=== PATIENT | male | born 1955 | race Asian ===

== ENCOUNTER 2019-04-26 11:39 | Inpatient (IN) | payer BC ==
[~2019-04-26] VITALS: Ht 182.9 cm; Wt 89.0 kg
[~2019-04-26 11:39] MED LIST: COLACE100 MG PO; NOR10T PO; PRINIVIL10 MG PO; [UNRECOGNIZED DRUG - REMARK]
[2019-04-26 12:28] LABS: CARBON DIOXIDE 27.4 mmol/L (21-32); CHLORIDE SERUM 100 mmol/L (98-107); GFR1 > 60 mL/min; GLUCOSE SERUM 213 mg/dL (74-106); POTASSIUM SERUM 3.1 mmol/L (3.5-5.1); SODIUM SERUM 136 mmol/L (136-145)
[2019-04-26 12:30] LABS: BASOPHIL % 0.3 % (0-2); PLATELET COUNT 311 x10^3mcL (130-400); RED CELL DISTRIBUTION WIDTH 14.2 % (11.5-14.5)
[2019-04-26 12:32] LABS: ALKALINE PHOSPHATASE 82 U/L (46-116); ALT/SGPT 66 U/L (16-63); AST/SGOT 53 U/L (15-37); BILIRUBIN TOTAL 0.4 mg/dL (0.20-1.00); LIPASE 597 IU/L (73-393)
[2019-04-26 12:35] LABS: TOTAL PROTEIN, SERUM 5.7 g/dL (6.4-8.2)
[2019-04-26] MEDS ORDERED: DILTIAZEM HCL120 M2 PO (13:17)
[2019-04-26] MEDS ORDERED: AMBIEN5 MG PO (13:17)
[2019-04-26] MEDS ORDERED: LORAZEPAM0.5 MG PO (13:17)
[2019-04-26] MEDS ORDERED: COMINH (13:17)
[2019-04-26] MEDS ORDERED: DULCOLAX10 M1 (13:17)
[2019-04-26] MEDS ORDERED: PERCOCET1 TA5 (13:18)
[2019-04-26] MEDS ORDERED: XARELTO10 M1 PO (13:19)
[2019-04-26] MEDS ORDERED: SENNO8.6 MG PO (13:19)
[2019-04-26] MEDS ORDERED: GAS RELIEF 8080 MG (13:19)
[2019-04-26 14:48] LABS: PLATELET COUNT 280 x10^3mcL (130-400); RED CELL DISTRIBUTION WIDTH 14.3 % (11.5-14.5)
[2019-04-26 14:53] LABS: BASOPHIL % 0 % (0-2)
[2019-04-26 16:46] VITALS: BP 112/73
[2019-04-26 19:37] VITALS: BP 97/66
[2019-04-26 23:09] VITALS: BP 121/83
[2019-04-27 03:09] VITALS: BP 128/89
[2019-04-27 05:18] LABS: BASOPHIL % 0.1 % (0-2); PLATELET COUNT 286 x10^3mcL (130-400); RED CELL DISTRIBUTION WIDTH 14.3 % (11.5-14.5)
[2019-04-27 05:22] LABS: ALBUMIN 1.6 g/dL (3.4-5.0); ALKALINE PHOSPHATASE 69 U/L (46-116); ALT/SGPT 75 U/L (16-63); AST/SGOT 62 U/L (15-37); BILIRUBIN TOTAL 0.3 mg/dL (0.20-1.00); CALCIUM 7.2 mg/dL (8.5-10.1); CARBON DIOXIDE 23.5 mmol/L (21-32); CHLORIDE SERUM 105 mmol/L (98-107); CREATININE SERUM 0.7 mg/dL (0.7-1.3); GFR1 > 60 mL/min; GLUCOSE SERUM 145 mg/dL (74-106); POTASSIUM SERUM 3.3 mmol/L (3.5-5.1); SODIUM SERUM 138 mmol/L (136-145); TOTAL PROTEIN, SERUM 4.7 g/dL (6.4-8.2)
[2019-04-27 08:21] VITALS: BP 141/97
[2019-04-27 11:52] VITALS: BP 121/91
[2019-04-27 15:49] VITALS: BP 136/89
[2019-04-28 05:10] LABS: BASOPHIL % 0.1 % (0-2); PLATELET COUNT 350 x10^3mcL (130-400)
[2019-04-28 05:17] LABS: RED CELL DISTRIBUTION WIDTH 14.7 % (11.5-14.5)
[2019-04-28 05:54] LABS: ALBUMIN 1.9 g/dL (3.4-5.0); ALKALINE PHOSPHATASE 73 U/L (46-116); ALT/SGPT 69 U/L (16-63); AST/SGOT 31 U/L (15-37); BILIRUBIN TOTAL 0.18 mg/dL (0.20-1.00); CALCIUM 7.9 mg/dL (8.5-10.1); CARBON DIOXIDE 23.2 mmol/L (21-32); CHLORIDE SERUM 106 mmol/L (98-107); CREATININE SERUM 0.8 mg/dL (0.7-1.3); GFR1 > 60 mL/min; GLUCOSE SERUM 169 mg/dL (74-106); POTASSIUM SERUM 3.5 mmol/L (3.5-5.1); SODIUM SERUM 138 mmol/L (136-145); TOTAL PROTEIN, SERUM 5.1 g/dL (6.4-8.2)
[2019-04-28 08:00] VITALS: BP 121/82
[2019-04-28 11:30] VITALS: BP 140/93
[2019-04-28 19:00] VITALS: BP 138/72
[2019-04-28 20:00] VITALS: BP 120/79
[2019-04-28 22:00] VITALS: BP 114/74
[2019-04-28 23:00] VITALS: BP 108/73
[2019-04-29] VITALS: BP 152/100
[2019-04-29 04:50] LABS: PLATELET COUNT 318 x10^3mcL (130-400)
[2019-04-29 04:52] LABS: BASOPHIL % 0 % (0-2)
[2019-04-29 05:18] LABS: MAGNESIUM 1.9 mg/dL (1.8-2.4); PHOSPHOROUS 2.6 mg/dL (2.5-4.9)
[2019-04-29 05:19] LABS: ALKALINE PHOSPHATASE 72 U/L (46-116); ALT/SGPT 66 U/L (16-63); AST/SGOT 32 U/L (15-37); BILIRUBIN TOTAL 0.32 mg/dL (0.20-1.00); CALCIUM 7.8 mg/dL (8.5-10.1); CARBON DIOXIDE 28.4 mmol/L (21-32); CHLORIDE SERUM 106 mmol/L (98-107); CREATININE SERUM 0.9 mg/dL (0.7-1.3); GFR1 > 60 mL/min; GLUCOSE SERUM 133 mg/dL (74-106); POTASSIUM SERUM 3.5 mmol/L (3.5-5.1); SODIUM SERUM 142 mmol/L (136-145)
[2019-04-29 05:20] LABS: ALBUMIN 1.8 g/dL (3.4-5.0); TOTAL PROTEIN, SERUM 4.9 g/dL (6.4-8.2)
[2019-04-29 08:00] VITALS: BP 103/64
[2019-04-29 08:48] VITALS: Ht 182.9 cm; Wt 89.0 kg
[2019-04-29 12:00] VITALS: BP 126/69
[2019-04-29 20:00] VITALS: BP 125/88
[2019-04-30 06:30] LABS: PLATELET COUNT 278 x10^3mcL (130-400)
[2019-04-30 06:40] VITALS: BP 130/81
[2019-04-30 07:00] LABS: ALKALINE PHOSPHATASE 79 U/L (46-116); ALT/SGPT 65 U/L (16-63); AST/SGOT 33 U/L (15-37); BILIRUBIN TOTAL 0.38 mg/dL (0.20-1.00); CALCIUM 7.6 mg/dL (8.5-10.1); CARBON DIOXIDE 30.1 mmol/L (21-32); CHLORIDE SERUM 108 mmol/L (98-107); CREATININE SERUM 0.7 mg/dL (0.7-1.3); GFR1 > 60 mL/min; GLUCOSE SERUM 114 mg/dL (74-106); POTASSIUM SERUM 3.5 mmol/L (3.5-5.1); SODIUM SERUM 143 mmol/L (136-145)
[2019-04-30 07:09] LABS: ALBUMIN 1.8 g/dL (3.4-5.0); TOTAL PROTEIN, SERUM 4.8 g/dL (6.4-8.2)
[2019-04-30 07:47] LABS: BASOPHIL % 0 % (0-2); RED CELL DISTRIBUTION WIDTH 15.5 % (11.5-14.5)
[2019-04-30 09:04] VITALS: BP 116/63
[2019-04-30 12:54] VITALS: BP 114/84
[2019-04-30 15:42] VITALS: BP 114/84
[2019-04-30 16:28] VITALS: BP 119/87
[2019-04-30 21:09] VITALS: BP 114/80
[2019-05-01 05:49] VITALS: BP 108/77
[2019-05-01 06:33] LABS: PLATELET COUNT 247 x10^3mcL (130-400)
[2019-05-01 06:46] LABS: BASOPHIL % 0 % (0-2); RED CELL DISTRIBUTION WIDTH 16.7 % (11.5-14.5)
[2019-05-01 07:39] LABS: ALKALINE PHOSPHATASE 86 U/L (46-116); ALT/SGPT 67 U/L (16-63); AST/SGOT 32 U/L (15-37); BILIRUBIN TOTAL 0.3 mg/dL (0.20-1.00); CALCIUM 7.9 mg/dL (8.5-10.1); CARBON DIOXIDE 32.2 mmol/L (21-32); CHLORIDE SERUM 107 mmol/L (98-107); CREATININE SERUM 0.8 mg/dL (0.7-1.3); GFR1 > 60 mL/min; GLUCOSE SERUM 120 mg/dL (74-106); POTASSIUM SERUM 4.3 mmol/L (3.5-5.1); SODIUM SERUM 144 mmol/L (136-145)
[2019-05-01 07:42] LABS: TOTAL PROTEIN, SERUM 5.1 g/dL (6.4-8.2)
[2019-05-01 07:43] LABS: ALBUMIN 1.9 g/dL (3.4-5.0)
[2019-05-01 09:56] VITALS: BP 132/94
[2019-05-01] MEDS ORDERED: FER300 PO (09:57)
[2019-05-01] MEDS ORDERED: KLOR-CON M2020 MEQ PO (09:58)
[2019-05-01] MEDS ORDERED: COR200 PO (09:58)
[2019-05-01] MEDS ORDERED: LAC30L PO (09:58)
[2019-05-01] MEDS ORDERED: MEG40 PO (09:59)
[2019-05-01] MEDS ORDERED: FOL1 PO (09:59)
[2019-05-01] MEDS ORDERED: THERA TABLET400 MCG PO (09:59)
[2019-05-01] MEDS ORDERED: MAG PO (09:59)
[2019-05-01 17:23] VITALS: BP 127/73
[2019-05-01 20:23] VITALS: BP 101/69
[2019-05-02 04:28] VITALS: BP 123/83
[2019-05-02 07:01] LABS: PLATELET COUNT 250 x10^3mcL (130-400)
[2019-05-02 07:10] LABS: ALKALINE PHOSPHATASE 87 U/L (46-116); ALT/SGPT 63 U/L (16-63); AST/SGOT 28 U/L (15-37); BILIRUBIN TOTAL 0.2 mg/dL (0.20-1.00); CALCIUM 7.9 mg/dL (8.5-10.1); CHLORIDE SERUM 109 mmol/L (98-107); CREATININE SERUM 0.8 mg/dL (0.7-1.3); GFR1 > 60 mL/min; GLUCOSE SERUM 141 mg/dL (74-106); MAGNESIUM 2.1 mg/dL (1.8-2.4); POTASSIUM SERUM 4.4 mmol/L (3.5-5.1); SODIUM SERUM 145 mmol/L (136-145)
[2019-05-02 07:11] LABS: TOTAL PROTEIN, SERUM 5.1 g/dL (6.4-8.2)
[2019-05-02 08:57] LABS: BASOPHIL % 0 % (0-2)
[2019-05-02 08:59] VITALS: BP 136/96
[2019-05-02 12:52] VITALS: BP 126/86
[2019-05-02 15:55] VITALS: BP 126/86
== END 2019-05-02 16:41 | disposition home health service (06) | DRG 377 ==
LOC: ED 11:39 → IC 14:08 → DU 14:08 → IC 16:14 → DU 04-29 17:36
PROVIDERS: Emergency Medicine; Internal Medicine Gastroenterology; Internal Medicine Pulmonary Disease; ADMIT Internal Medicine
PROC: 0DB68ZX Excision of Stomach, Via Natural or Artificial Opening Endoscopic, Diagnostic (ICD-10-PCS; principal; 2019-04-29 08:30)
PROC: 0W3P8ZZ Control Bleeding in Gastrointestinal Tract, Via Natural or Artificial Opening Endoscopic (ICD-10-PCS; 2019-04-29 08:30)
PROC: 0DBN8ZX Excision of Sigmoid Colon, Via Natural or Artificial Opening Endoscopic, Diagnostic (ICD-10-PCS; 2019-04-29 08:30)
DX: K92.2 Gastrointestinal hemorrhage, unspecified (principal); J96.01 Acute respiratory failure with hypoxia; E43 Unspecified severe protein-calorie malnutrition; I47.2 Ventricular tachycardia; C78.00 Secondary malignant neoplasm of unspecified lung; I10 Essential (primary) hypertension; K64.8 Other hemorrhoids; E87.6 Hypokalemia; D64.9 Anemia, unspecified; Z66 Do not resuscitate; Z90.49 Acquired absence of other specified parts of digestive tract; Z68.26 Body mass index [BMI] 26.0-26.9, adult; Z85.038 Personal history of other malignant neoplasm of large intestine; Z79.899 Other long term (current) drug therapy
CPT/HCPCS: 36600; 43235; 45378; 82962; 88344; 97110-GP; 97116-GP; 97530-GP; C9113; G0378; J0171; J1200; J1610; J1644; J1956; J2001; J2250; J2270; J2310; J2543; J2690; J2765; J2916; J2920; J3010; J3475; J3480; J3490; J7030; J7040; J7620; Q0092